=== PATIENT | female | born 1995 | race Caucasian/White ===

== ENCOUNTER 2021-12-04 10:00 | Day surgery (SDC) | payer OTHER, SELFPAY ==
[~2021-12-04] VITALS: Ht 167.6 cm; Wt 86.2 kg
[2021-12-04] MEDS ORDERED: MIDAZOLAM 2 MG/2 ML VIAL ONE (13:13)
[2021-12-04] MEDS ORDERED: fentaNYL citrate 0.05 MG/ML VIAL ONE (13:13)
[2021-12-04] MEDS ORDERED: MIDAZOLAM 5 MG/5 ML VIAL ONE (13:23)
[2021-12-04] MEDS ORDERED: MIDAZOLAM 2 MG/2 ML VIAL IVP ONE (14:15)
== END 2021-12-04 14:03 | disposition home or self-care (01) ==
LOC: MDS 10:00 → MMU 10:35 → MDS 14:03
PROVIDERS: ATTEND Internal Medicine Gastroenterology
DX: K20.90 Esophagitis, unspecified without bleeding (principal); R43.9 Unspecified disturbances of smell and taste; Z20.822 Contact with and (suspected) exposure to COVID-19
CPT/HCPCS: 36415; 43239; 81025; 86677; 87426; J2250; J3010